=== PATIENT | female | born 1975 | race Caucasian/White ===

== ENCOUNTER 2024-06-14 06:35 | Day surgery (SDC) | payer OTHER ==
[2024-06-13 09:39] VITALS: BMI 31.1
[2024-06-14] MEDS ORDERED: Oxymetazoline HCl 0.05% (30 ML BOT) ONE (06:53)
[2024-06-14] MEDS ORDERED: EPINEPHrine 1 MG/ML VIAL ONE (07:06)
[2024-06-14] MEDS ORDERED: Lidocaine 1% (PF) 30 ML VIAL ONE (07:07)
[2024-06-14] MEDS ORDERED: Bacitracin Zinc Ointment 30 gm TUBE ONE (07:07)
[2024-06-14 08:18] LABS: Hematocrit 36.9 % (36.0-47.0)
[2024-06-14] MEDS ORDERED: PROPOFOL 20 ML ONE ×2 (08:33)
[2024-06-14] MEDS ORDERED: fentaNYL PF 100 MCG/2 ML SYRINGE ONE (08:35)
[2024-06-14] MEDS ORDERED: Lidocaine 1% PF 5 ML VIAL ONE (08:36)
[2024-06-14] MEDS ORDERED: Rocuronium Bromide 10 MG/ML (10ML VIAL) ONE (09:06)
[2024-06-14] MEDS ORDERED: Dexamethasone 20 MG/5 ML VIAL ONE (09:09)
[2024-06-14] MEDS ORDERED: Ondansetron PF 4 MG/2 ML Vial ONE (09:10)
[2024-06-14] MEDS ORDERED: NEOSTIGMINE 3 MG/3 ML SYRINGE ONE (09:19)
[2024-06-14] MEDS ORDERED: Glycopyrrolate 0.2 MG/ML 5 ML SYRINGE ONE (09:19)
[2024-06-14] MEDS ORDERED: fentaNYL 50 mcg/mL 1 mL Vial ONE (09:49)
[2024-06-14] MEDS ORDERED: Hydrocodone-Acetamin 15 ML UDCUP ONE (11:38)
== END 2024-06-14 12:05 | disposition home or self-care (01) ==
LOC: SDC 06:35
PROVIDERS: ATTEND Otolaryngology Plastic Surgery within the Head & Neck
PROC: 09BM8ZZ Excision of Nasal Septum, Via Natural or Artificial Opening Endoscopic (ICD-10-PCS; principal; 2024-06-14)
PROC: 09TL8ZZ Resection of Nasal Turbinate, Via Natural or Artificial Opening Endoscopic (ICD-10-PCS; principal; 2024-06-14)
DX: J34.2 Deviated nasal septum (principal); J34.3 Hypertrophy of nasal turbinates; J34.89 Other specified disorders of nose and nasal sinuses; F32.A Depression, unspecified; F41.9 Anxiety disorder, unspecified; E78.00 Pure hypercholesterolemia, unspecified; E05.90 Thyrotoxicosis, unspecified without thyrotoxic crisis or storm; D64.9 Anemia, unspecified; J30.9 Allergic rhinitis, unspecified; R51.9 Headache, unspecified; J32.9 Chronic sinusitis, unspecified; Z87.891 Personal history of nicotine dependence; Z79.899 Other long term (current) drug therapy
CPT/HCPCS: 85014; J0171; J1100; J2001; J2405; J2704; J3010